=== PATIENT | female | born 1990 | race Caucasian/White ===

== ENCOUNTER 2021-09-24 05:14 | Inpatient (IN) | payer OTHER ==
[~2021-09-24] VITALS: Ht 172.7 cm; Wt 145.5 kg
[~2021-09-24 05:14] MED LIST: CeFAZolin 2 GM/DEXTROSE 50 ML IV ONE; RINGERS SOLUTION,LACTATED 1,000 ML IV ONE
[2021-09-24 05:50] LABS: COVID AG,FIA SOURCE NASOPHARYNGEAL
[2021-09-24] MEDS ORDERED: SODIUM CL IRRIG SOLN BAG 3,000 ML IRRIG ONE (06:31)
[2021-09-24] MEDS ORDERED: BUPIVACAINE 0.25%/EPI 1:200,000/PF 10 ML VIAL ONE (06:34)
[2021-09-24] MEDS ORDERED: MICROFIBRILLAR COLLAGEN 1 GM PACKAGE TP ONE (06:35)
[2021-09-24] MEDS ORDERED: TRANEXAMIC ACID 1,000 MG/10 ML VIAL ONE (06:35)
[2021-09-24] MEDS ORDERED: MUPIROCIN CALCIUM 2% 22 GM OINTMENT ONE (06:35)
[2021-09-24] MEDS ORDERED: VANCOMYCIN HCL 1 GM/VIAL ONE (06:35)
[2021-09-24] MEDS ORDERED: SODIUM CHLORIDE 0.9% 0 ML ONE (06:35)
[2021-09-24] MEDS ORDERED: IOHEXOL 240 MG/ML 20 ML VIAL ONE (06:39)
[2021-09-24] MEDS ORDERED: BUPIVACAINE LIPOSOME/PF 1.3%-13.3MG/ML SUSPENSION 20 ML VIAL INJ ONE (06:45)
[2021-09-24] MEDS ORDERED: SUGAMMADEX SODIUM 200 MG/2 ML VIAL IVP ONE ×2 (06:59→07:00)
[2021-09-24] MEDS ORDERED: CeFAZolin 2 GM/DEXTROSE 50 ML IV ONE ×2 (07:00→08:42)
[2021-09-24] MEDS ORDERED: SODIUM CHLORIDE 0.9% 100 ML ONE (07:05)
[2021-09-24] MEDS ORDERED: HYDROmorphone 2 MG/ML VIAL ONE (08:44)
[2021-09-24] MEDS ORDERED: HYDROmorphone 2 MG/ML VIAL IVP PRN ×2 (08:45→11:15)
[2021-09-24] MEDS ORDERED: FentaNYL CITRATE PF 100 MCG/2 ML VIAL IVP PRN (08:45)
[2021-09-24] MEDS ORDERED: MEPERIDINE-PF 25 MG/ML VIAL IVP PRN (08:45)
[2021-09-24] MEDS ORDERED: FentaNYL CITRATE PF 100 MCG/2 ML VIAL ONE (09:00)
[2021-09-24] MEDS ORDERED: OxyCODONE HCL/ACETAMINOPHEN 10-325 MG TABLET PO PRN (10:00)
[2021-09-24] MEDS ORDERED: OxyCODONE HCL/ACETAMINOPHEN 10-325 MG TABLET ONE (10:01)
[2021-09-24] MEDS ORDERED: CYCLOBENZAPRINE HCL 10 MG TABLET PO PRN (11:15)
[2021-09-24] MEDS ORDERED: LIDOCAINE/PF 2% 5 ML VIAL IM ONE (12:00)
[2021-09-24] MEDS ORDERED: ONDANSETRON HCL 4 MG/2 ML VIAL IVP ONE (12:00)
[2021-09-24] MEDS ORDERED: MIDAZOLAM HCL 2 MG/2 ML VIAL IVP ONE (12:00)
[2021-09-24] MEDS ORDERED: MORPHINE SULFATE 4 MG/ML SYRINGE IVP ONE (12:00)
[2021-09-24] MEDS ORDERED: 0.9% SODIUM CHLORIDE 10 ML VIAL IVP ONE (12:00)
[2021-09-24] MEDS ORDERED: FentaNYL CITRATE PF 100 MCG/2 ML VIAL IVP ONE (12:00)
[2021-09-24] MEDS ORDERED: PROPOFOL 1% 20 ML VIAL IVP ONE (12:00)
[2021-09-24] MEDS ORDERED: DEXAMETHASONE SOD PHOS 4 MG/ML VIAL IVP ONE (12:00)
[2021-09-24] MEDS ORDERED: MORPHINE SULFATE/PF 0.5 MG/ML 10 ML AMP IVP ONE (12:00)
[2021-09-24] MEDS ORDERED: KETOROLAC TROMETHAMINE 60 MG/2 ML VIAL IM ONE (12:00)
[2021-09-24] MEDS ORDERED: ROCURONIUM BROMIDE 10 MG/ML 5 ML VIAL IVP ONE (12:00)
[2021-09-24 13:00] VITALS: BP 124/83
[2021-09-24] MEDS ORDERED: ZOLPIDEM TARTRATE 5 MG TABLET PO PRN (13:00)
[2021-09-24] MEDS ORDERED: ONDANSETRON HCL 4 MG/2 ML VIAL IVP PRN (13:00)
[2021-09-24] MEDS ORDERED: MAGNESIUM HYDROXIDE SUSPENSION 30 ML UDCUP PO PRN (13:00)
[2021-09-24] MEDS ORDERED: BISACODYL 10 MG RECTAL RECTAL SUPPOSITORY PR PRN (13:00)
[2021-09-24] MEDS ORDERED: ACETAMINOPHEN 325 MG TABLET PO PRN (13:00)
[2021-09-24] MEDS ORDERED: INFLUENZA VIRUS VACCINE QVS 2021-22 (6MO+)/PF 60 MCG/0.5 ML SYRINGE IM. ONE (14:30)
[2021-09-24] MEDS: HYDROCODONE/ACETAMINOPHEN 5-325 MG TABLET PO PRN ×2 (14:45→20:00)
[2021-09-24 16:19] VITALS: BP 128/77
[2021-09-24] MEDS: MORPHINE SULFATE 2 MG/ML SYRINGE IVP PRN ×2 (18:19→23:26)
[2021-09-24 19:46] VITALS: BP 112/55
[2021-09-24] MEDS: DOCUSATE SODIUM 100 MG CAPSULE PO SCH (19:59)
[2021-09-24] MEDS: OXYGEN THERAPY IH SCH (20:00)
[2021-09-25 04:09] VITALS: BP 115/56
[2021-09-25] MEDS: HYDROCODONE/ACETAMINOPHEN 5-325 MG TABLET PO PRN (04:14)
[2021-09-25] MEDS: OXYGEN THERAPY IH SCH (08:00)
[2021-09-25 08:02] VITALS: BP 106/61
[2021-09-25] MEDS: DOCUSATE SODIUM 100 MG CAPSULE PO SCH (08:52)
[2021-09-25] MEDS ORDERED: ASPIRIN 81 MG DR TABLET PO SCH (09:00)
[2021-09-25] MEDS ORDERED: PANTOPRAZOLE SODIUM 40 MG DR TABLET PO SCH (09:00)
[2021-09-25] MEDS: MORPHINE SULFATE 2 MG/ML SYRINGE IVP PRN (09:14)
[2021-09-25] MEDS: OxyCODONE HCL/ACETAMINOPHEN 10-325 MG TABLET PO PRN ×2 (11:25→16:05)
[2021-09-25] MEDS ORDERED: ASPI-1450 PO (13:34)
[2021-09-25] MEDS ORDERED: CYCL10TA17 PO (13:35)
[2021-09-25] MEDS ORDERED: OXYC-490 PO (13:36)
== END 2021-09-25 16:39 | disposition home or self-care (01) | DRG 493 ==
LOC: SURGERY 05:14 → 6N 05:15
PROVIDERS: ADMIT Orthopaedic Surgery; ATTEND Orthopaedic Surgery
PROC: 0QSJ04Z Reposition Right Fibula with Internal Fixation Device, Open Approach (ICD-10-PCS; 2021-09-24)
PROC: 0SPF04Z Removal of Internal Fixation Device from Right Ankle Joint, Open Approach (ICD-10-PCS; 2021-09-24)
PROC: 3E0V0GB Introduction of Recombinant Bone Morphogenetic Protein into Bones, Open Approach (ICD-10-PCS; 2021-09-24)
PROC: 0SSF0ZZ Reposition Right Ankle Joint, Open Approach (ICD-10-PCS; principal; 2021-09-24 07:00)
DX: S82.61XA Displaced fracture of lateral malleolus of right fibula, initial encounter for closed fracture (principal); Z68.42 Body mass index [BMI] 45.0-49.9, adult; Z20.822 Contact with and (suspected) exposure to COVID-19; E66.01 Morbid (severe) obesity due to excess calories; X58.XXXA Exposure to other specified factors, initial encounter; Z79.82 Long term (current) use of aspirin; Y93.89 Activity, other specified; Y92.89 Other specified places as the place of occurrence of the external cause; Y99.8 Other external cause status
CPT/HCPCS: 84703; 88300; 88305; 88311; 97162; 97166; C9290; G0238; J0690; J1100; J1170; J1885; J2250; J2270; J2274; J2405; J2704; J3010; J3370; J3490; J7050; J7120; Q9966; Q9967